=== PATIENT | female | born 1950 | race Caucasian/White ===

== ENCOUNTER 2017-11-26 10:21 | Inpatient (IN) | payer OTHER ==
[~2017-11-26] VITALS: Ht 165.1 cm; Wt 90.7 kg
--- NOTE | ~2017-11-26 | CON ---
[address] [address] CONSULTATION Name: STEPHANIECHANTELL Valentine Room: [address] IN M.R.#: [id number] Admission: 11/26/17 Attend Phys: Eder Schwarz Discharge: Date of : 54 Report #: [id number] THIS REPORT FOR: //name// CC: Rod Presley DATE OF SERVICE: 11/28/2017 REFERRING PHYSICIAN: Johnathan Presley DO CHIEF COMPLAINT: Back pain. HISTORY OF PRESENT ILLNESS: The patient is a 67-year-old female who is a lifelong nonsmoker. She presented to the hospital complaining of right lower back pain. The patient has a history of kidney stones. She has had a procedure to break up her stones back in October. At that time, she was having gross hematuria. Since then, she has done well. No obvious blood in her urine, only to present to the Emergency Room with continued discomfort and pain. According to the record, she was also complaining of shortness of breath. Today, the patient fails to demonstrate or complain of any short windedness, it is kind of surprising that we were actually called in to see her, although it was based on the fact that she did initially complain of shortness of air, which she may not have necessarily remembered because of her distress. In any event, she states that her pain now is better controlled. She is not having any shortness of breath, denies cough, phlegm production, fever, chills, nausea, vomiting. The patient is a lifelong nonsmoker at this time. She does carry a diagnosis of sleep apnea, was treated for that condition, but some time in the past she elected to discontinue using the noninvasive positive pressure device. She states that she was sleeping better. I had a discussion with her regarding sleep apnea and felt that it was imperative that she be retested to determine whether her sleep apnea has actually resolved or not. PAST MEDICAL HISTORY: Significant for kidney stones. She has a past medical history of pneumonia. She also carries a history of hypothyroidism, hypertension and hyperlipidemia. ALLERGIES: CODEINE, MORPHINE, SULFA DRUGS. FAMILY HISTORY: She denies any previous family elements, although the mother is present, states that on her father's side there is some coronary artery disease. REVIEW OF SYSTEMS: Systems review negative other [place] [address] CONSULTATION Name: CHANTELL BROWN Room: [address]#: [id number] Admission: 11/26/17 Attend Phys: Eder Schwarz Discharge: Date of : 54 Report #: [id number] MEDICATIONS: Promethazine, Zofran as needed, DuoNeb aerosol treatments, levothyroxine, OxyContin 5/325. PHYSICAL EXAMINATION: VITAL SIGNS: Reveal blood pressure 169/65, respiratory rate of 18, nonlabored, pulse rate 88, temperature 98.4. Her weight is 200 pounds. GENERAL APPEARANCE: Awake, alert, oriented, no distress. She is on room air, saturation above 90%. HEAD: Atraumatic. EYES: Pupils are round, equal, reactive. ORAL CAVITY: Good dentition. No lesions. Crowding of her oropharynx. NECK: No adenopathy, JVD or thyromegaly. CHEST: Clear throughout all lung avalos. No audible wheezes, rales or rhonchi. CARDIOVASCULAR: Regular rhythm. ABDOMEN: Obese. EXTREMITIES: Without edema or clubbing. NEUROLOGIC: She moves all 4 extremities. There are no pathologic reflexes. Strength equal bilaterally. IMAGING: Chest x-ray, some bibasilar atelectatic changes. No clearcut infiltrate, effusions, mass effect or pneumothorax. She does have blunting of the costophrenic angles. LABORATORY DATA: Sodium 141, potassium 4.2, chloride 106, CO2 of 28, BUN of 14, creatinine 0.8. Liver enzymes are normal. Urinalysis, trace of blood. Influenza A/B screen negative. Hemoglobin and hematocrit of 11.6 and 35 with a white count of 17,500. ASSESSMENT: 1. Ureterolithiasis, most likely. The patient states she was told there may be remnants of calculi in the ureter versus urethra. 2. Bibasilar atelectatic changes. 3. Obesity. 4. Obstructive sleep apnea by history. PLAN: 1. First and foremost the patient was advised to undergo an outpatient sleep study that can be ordered by her primary physician. 2. Pulmonary boswell, we will initiate incentive spirometry, advised her to take deeper breaths. 3. From a pulmonary standpoint, no further recommendations. We will sign off her case. We will be available if needed. By: [id number] Ashton MD /nt
[~2017-11-26 10:21] MED LIST: ALEVE220 MG PO; ASPIRIN325 PO; ATORVASTATIN CA40 MG PO; CENTRUM SILVER1 EAC4 PO; CINNAMON500 MG PO; CRANBERRY200 MG PO; LEVOTHYROXIN0.125 M1 PO; LEVOTHYROXINE 0.1 MG PO; MAGOX 400400 MG PO; OXYCODONE HCL 55 MG PO; PERCOCET PO; XARELTO10 MG PO
[2017-11-26 10:28] VITALS: BP 198/93
[2017-11-26 11:23] LABS: HEMATOCRIT 40.8 % (37.0-47.0); HEMOGLOBIN 13.6 gm/dL (12.0-15.0); MCH 29.1 pg (26.0-34.0); MCHC 33.3 g/dL (28.0-37.0); MCV 87.3 fL (80.0-100.0); MPV 7.9 fl. (7.2-11.1); NUCLEATED RBCS 0 /100WBC; PLATELET COUNT* 203 thou/uL (150-400); RBC 4.68 mil/uL (4.20-5.00); RDW-CV 14.1 % (10.5-14.5); WBC 15.5 thou/uL (4.0-11.0)
[2017-11-26 11:27] LABS: INFLUENZA A ANTIGEN None Detected (None Detect); INFLUENZA B ANTIGEN None Detected (None Detect)
[2017-11-26 11:28] LABS: ANION GAP 8 mmol/L (7-16); BUN 13 mg/dL (7-18); CHLORIDE 100 mmol/L (98-107); CO2 30 mmol/L (21-32); CREATININE 0.9 mg/dL (0.6-1.3); GLUCOSE 156 mg/dL (70-99); POTASSIUM 3.7 mmol/L (3.5-5.1); SODIUM 138 mmol/L (136-145)
[2017-11-26 11:29] LABS: APTT 25.4 Seconds (25.0-31.3)
[2017-11-26 11:39] LABS: ALBUMIN 3.9 g/dL (3.4-5.0); ALKALINE PHOSPHATASE 145 U/L (46-116); NT-PRO BRAIN NAT PEPTIDE 302 pg/mL (<300); SGOT 39 U/L (15-37); SGPT 52 U/L (30-65); TOTAL BILIRUBIN 0.8 mg/dL (<0.1-1.0); TOTAL PROTEIN 7.5 g/dL (6.4-8.2); TROPONIN-I LEVEL <0.06 ng/mL (<0.06)
[2017-11-26 11:40] LABS: ABSOLUTE LYMPHOCYTES 0.3 thou/uL (0.8-5.3); ABSOLUTE MONOCYTES 1.4 thou/uL (0.0-1.2); ABSOLUTE NEUTROPHILS 13.8 thou/uL (1.6-8.1); PLATELET ESTIMATE ADEQUATE
[2017-11-26 14:55] VITALS: BP 144/79
[2017-11-26 15:30] VITALS: BP 133/64
--- NOTE | 2017-11-26 16:41 | EKG ---
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1950 Requested By: Kenan Sim Order Number: [id number] MD: Preet Moran Measurements Intervals [place] Rate: 102 P: 55 MA: 126 QRS: 10 QRSD: 100 T: -10 QT: 320 QTc: 417 Interpretive Statements Sinus tachycardia Probable left atrial enlargement Borderline T wave abnormalities Compared to ECG 06/25/2015 10:37:36 T-wave abnormality now present Sinus rhythm no longer present Electronically Signed On 11-26-2017 16:41:06 CDT by Preet Moran [email or web address] <ELECTRONICALLY SIGNED> By: Preet Moran MD, FACC 11/26/17 1641 1059 1059 Preet Moran MD, [facility] /EPI
[2017-11-26 16:42] LABS: URINE BILIRUBIN NEGATIVE (Negative); URINE BLOOD TRACE (Negative); URINE CLARITY CLEAR; URINE COLOR YELLOW; URINE GLUCOSE-RANDOM NEGATIVE (Negative); URINE KETONES NEGATIVE (Negative); URINE LEUKOCYTES-REFLEX NEGATIVE (Negative); URINE NITRITE-REFLEX NEGATIVE (Negative); URINE PROTEIN NEGATIVE (Negative); URINE SPECIFIC GRAVITY 1.015 (1.005-1.030); URINE UROBILINOGEN 0.2 E.U./dl (0.2-1.0)
[2017-11-26 20:10] VITALS: BP 132/63
[2017-11-27 05:43] LABS: ABSOLUTE LYMPHOCYTES 0.9 thou/uL (0.8-5.3); ABSOLUTE MONOCYTES 1.1 thou/uL (0.0-1.2); BASOPHILS 0.1 %; HEMATOCRIT 35.7 % (37.0-47.0); LYMPHOCYTES 3.6 %; MCH 28.4 pg (26.0-34.0); MCHC 32.6 g/dL (28.0-37.0); MCV 87.2 fL (80.0-100.0); MONOCYTES 4.6 %; MPV 7.7 fl. (7.2-11.1); NUCLEATED RBCS 0 /100WBC; PLATELET COUNT* 192 thou/uL (150-400); POLYS 91.7 %; RBC 4.09 mil/uL (4.20-5.00); RDW-CV 14.2 % (10.5-14.5)
[2017-11-27 05:48] LABS: HEMOGLOBIN 11.6 gm/dL (12.0-15.0)
[2017-11-27 06:16] LABS: ALBUMIN 2.9 g/dL (3.4-5.0); CALCIUM 8.5 mg/dL (8.5-10.1); CREATININE 0.8 mg/dL (0.6-1.3); POTASSIUM 4.2 mmol/L (3.5-5.1); TOTAL BILIRUBIN 0.5 mg/dL (<0.1-1.0); TOTAL PROTEIN 5.7 g/dL (6.4-8.2)
[2017-11-27 09:00] VITALS: BP 133/60
[2017-11-27 15:25] VITALS: BP 118/62
[2017-11-27 21:15] VITALS: BP 132/63
[2017-11-28 00:35] VITALS: BP 169/79
[2017-11-28 04:34] VITALS: BP 159/71
[2017-11-28 04:36] LABS: ABSOLUTE LYMPHOCYTES 1.6 thou/uL (0.8-5.3); ABSOLUTE NEUTROPHILS 14.8 thou/uL (1.6-8.1); BASOPHILS 0.2 %; EOSINOPHILS 0.1 %; HEMATOCRIT 34.9 % (37.0-47.0); HEMOGLOBIN 11.6 gm/dL (12.0-15.0); LYMPHOCYTES 9.3 %; MCH 29.2 pg (26.0-34.0); MCHC 33.2 g/dL (28.0-37.0); MONOCYTES 5.9 %; NUCLEATED RBCS 0 /100WBC; PLATELET COUNT* 217 thou/uL (150-400); POLYS 84.5 %; RBC 3.96 mil/uL (4.20-5.00); RDW-CV 14.8 % (10.5-14.5); WBC 17.5 thou/uL (4.0-11.0)
[2017-11-28 08:00] VITALS: BP 169/65
[2017-11-28 17:38] VITALS: BP 155/74
[2017-11-28 21:00] VITALS: BP 150/73
[2017-11-29 00:37] VITALS: BP 144/77
[2017-11-29 04:14] LABS: ABSOLUTE EOSINOPHILS 0.2 thou/uL (0.0-0.7); ABSOLUTE LYMPHOCYTES 1.7 thou/uL (0.8-5.3); ABSOLUTE MONOCYTES 0.6 thou/uL (0.0-1.2); BASOPHILS 0.2 %; EOSINOPHILS 1.5 %; HEMATOCRIT 36.4 % (37.0-47.0); HEMOGLOBIN 12.1 gm/dL (12.0-15.0); LYMPHOCYTES 14.7 %; MCH 29.2 pg (26.0-34.0); MCHC 33.3 g/dL (28.0-37.0); MCV 87.7 fL (80.0-100.0); MONOCYTES 5.1 %; MPV 7.4 fl. (7.2-11.1); NUCLEATED RBCS 0 /100WBC; PLATELET COUNT* 221 thou/uL (150-400); POLYS 78.5 %; RBC 4.15 mil/uL (4.20-5.00); RDW-CV 14.8 % (10.5-14.5); WBC 11.5 thou/uL (4.0-11.0)
[2017-11-29 04:35] LABS: CALCIUM 8.1 mg/dL (8.5-10.1); CREATININE 0.7 mg/dL (0.6-1.3); POTASSIUM 4.1 mmol/L (3.5-5.1)
[2017-11-29 08:00] VITALS: BP 167/90
[2017-11-29 15:37] VITALS: BP 157/68
[2017-11-29 21:35] VITALS: BP 170/90
[2017-11-30 05:48] VITALS: BP 166/84
[2017-11-30 08:00] VITALS: BP 156/96
--- NOTE | 2017-11-30 08:14 | CON ---
[address] [address] CONSULTATION Name: CHANTELL BROWN Room: [address] IN M.R.#: [id number] Admission: 11/26/17 Attend Phys: Eder Schwarz Discharge: Date of : 54 Report #: [id number] THIS REPORT FOR: //name// CC: Rod Presley DATE OF SERVICE: 11/27/2017 INFECTIOUS DISEASE CONSULTATION ATTENDING PHYSICIAN: Dr. Johnathan Presley. REASON FOR CONSULTATION: Pneumonitis. HISTORY OF PRESENT ILLNESS: Chart reviewed, patient examined, a 67-year-old admitted through the emergency room with fevers with progressive shortness of breath as well as a cough productive of bloody sputum. She became mildly encephalopathic as well. Imaging suggested right basilar infiltrate. She was empirically started on therapy with levofloxacin. Overall, she feels somewhat better. Denies any particular risk factors. She has not previously been hospitalized with pneumonia. ALLERGIES: SULFA, MORPHINE, CODEINE AND SHE MENTIONED AMOXICILLIN WELL. BOTH ANTIBIOTICS CAUSE RASH. CURRENT MEDICATIONS: Include promethazine as needed, ipratropium and albuterol inhaler, levofloxacin, levothyroxine, atorvastatin, oxycodone. PAST MEDICAL HISTORY: As noted above, hyperlipidemia, hypothyroidism, previous thyroidectomy, cholecystectomy, total abdominal hysterectomy, right knee arthroscopic procedure. SOCIAL HISTORY: Nonsmoker, no ethanol. FAMILY HISTORY: Noncontributory. REVIEW OF SYSTEMS: As above. Denies any significant abdominal-related complaints, no nausea or diarrhea. She did have chills. PHYSICAL EXAMINATION: GENERAL: She is in moderate distress. She is fairly lucid at this point, appears to be not overtly undernourished. VITAL SIGNS: Temperature max 101.0, more recently 97, pulse 82, respirations 16, blood pressure 118/62. SKIN: Warm, dry, no rashes. HEENT: [place] [address] CONSULTATION Name: CHANTELL BROWN Room: [address]#: [id number] Admission: 11/26/17 Attend Phys: Eder Schwarz Discharge: Date of : 54 Report #: [id number] NECK: Supple. LUNGS: Few scattered coarse sounds, crackles at the right base. HEART: Regular. I do not appreciate murmur. ABDOMEN: Soft, slightly obese, nontender, no peritoneal signs. GENITOURINARY AND RECTAL: Deferred. LABORATORY DATA: Blood cultures sterile thus far. Sputum culture in progress had moderate white cells, mixed gen on Gram stain. Electrolytes: Sodium 141, potassium 4.2, chloride 106, bicarb is 28, BUN and creatinine 14 and 0.8 and anion gap of 7, glucose of 156. LFTs unremarkable. Albumin 2.9, total protein 5.7, estimated GFR of 72. CBC: White count of 24.0, H and H 11.6 and 35.7, platelets of 192. Urinary antigens for legionella not detected. Urinalysis unremarkable. Lactic acid 1.8. Influenza antigen was negative. Chest x-ray as described above. ASSESSMENT: Right basilar pneumonitis. We will continue empiric therapy. At this point, she is not critically ill. We will await results of the culture at this point. <ELECTRONICALLY SIGNED> By: Ruel Barajas MD 11/30/17 0814 1728 1930Jodolores Barajas MD /nt
--- NOTE | 2017-11-30 10:11 | CON ---
[address] [address] CONSULTATION Name: CHANTELL BROWN Room: [address] IN .R.#: [id number] Admission: 11/26/17 Attend Phys: Eder Schwarz Discharge: Date of : 54 Report #: [id number] THIS REPORT FOR: //name// CC: Rod Presley DATE OF SERVICE: 11/28/2017 REFERRING PHYSICIAN: Johnathan Presley DO. CHIEF COMPLAINT: Pneumonia. HISTORY OF PRESENT ILLNESS: The patient is a 67-year-old female who had been doing well up until morning when she woke up complaining of chills, fever, cough and actually had a bout of hemoptysis, which was not massive. She initially went to her primary physician's office who directed her to the hospital. She was admitted. She had been coughing, bringing up purulent secretions. She has had some chills initially on admission. During the time of her initial insult, she did not experience any nausea, vomiting, chest or abdominal pain. There was no dysuria or hematuria. Since being hospitalized, she is feeling somewhat better, not having any chills, still short of breath and still coughing on occasion with purulent secretions. No additional hemoptysis. PAST MEDICAL HISTORY: Significant for hypertension. She has a history of left breast carcinoma back in 2003, had a partial mastectomy, received radiation therapy and one treatment of oral chemotherapy. 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 This was about 20 years or so ago. She has had cholecystectomy. History of vaginal polyp removed, which is cancerous and the right knee arthroscopic procedure in the past. SOCIAL HISTORY: She is , lifelong nonsmoker. MEDICATIONS: Prior to admission included Levaquin, magnesium, Lipitor, cinnamon, cranberry extract, OxyContin p.r.n., aspirin. FAMILY HISTORY: Negative for any family ailments. ALLERGIES: CODEINE, MORPHINE, SULFA DRUGS. REVIEW OF SYSTEMS: System review negative other [place] [address] CONSULTATION Name: CHANTELL BROWN Room: [address]#: [id number] Admission: 11/26/17 Attend Phys: Eder Schwarz Discharge: Date of : 54 Report #: [id number] PHYSICAL EXAMINATION: VITAL SIGNS: Blood pressure 169/65, respiratory rate of 18, nonlabored, pulse rate 88, temperature 98.8 degrees. Her weight 200 pounds. GENERAL APPEARANCE: Awake, alert and oriented. She is not in any respiratory distress. She is lying in bed in the upright position. HEAD: Atraumatic. EYES: Pupils are round, equal, reactive. ORAL CAVITY: Moist. No lesions. NECK: No adenopathy. CHEST: Reveals crackles in the bases and mid lung field. There are no audible wheezes or rhonchi. CARDIOVASCULAR: Regular rhythm. ABDOMEN: Obese without organomegaly. EXTREMITIES: No evidence of edema or clubbing. NEUROLOGIC: She moves all 4 extremities. Strength equal bilaterally. SKIN: Warm, dry, no rash. LABORATORY DATA: Sodium 141, potassium 4.2, chloride 106, CO2 of 28, BUN of 14, creatinine 0.8. Lactic acid on admission 1.8. ProBNP 302, which is slightly above normal. Troponin less than 0.06. Hemoglobin and hematocrit of 11.6 and 35 with a white count of 17,500. Influenza A/B screen is negative. Chest x-ray today shows blunting of the costophrenic angles bilaterally, bibasilar nonconsolidative infiltrates. IMPRESSION: 1. Pneumonia. 2. Obesity. 3. History of above cancers. 4. History of hypertension. PLAN: We will add Zithromax to her current regimen. Blood cultures have already been obtained. There has been no growth on her cultures to date so far. We will follow up with a repeat chest x-ray, initiate incentive spirometry and also have her undergo a flutter valve treatment. Continue with aerosols as well. Her O2 saturation is well above 95%. No need for supplemental oxygen, although we will have her use it at bedtime. <ELECTRONICALLY SIGNED> By: Gentry Ashton MD 11/30/17 1011 1102 [id number] Ashton MD /nt
[2017-11-30 12:11] VITALS: BP 166/84
[2017-11-30] MEDS ORDERED: LEVAQUIN 750 M750 MG PO (12:18)
[2017-11-30] MEDS ORDERED: MUCINEX DM ER1 EAC1 PO (12:19)
[2017-11-30] MEDS ORDERED: MEDROLDOSEPACK PO (12:23)
[2017-11-30] MEDS ORDERED: ACYCLOVIR 400400 MG PO (12:24)
[2017-11-30] MEDS ORDERED: ACETAMINOPHEN325 M1 PO (12:35)
[2017-11-30 15:48] VITALS: BP 166/84
== END 2017-11-30 14:45 | disposition home or self-care (01) | DRG 177 ==
LOC: M.ERS 10:21 → M.ORTHSURG 11:45 → M.TBA-ER 11:45 → M.ORTHSURG 15:12
PROVIDERS: Family Medicine; ADMIT Internal Medicine
DX: J15.6 Pneumonia due to other Gram-negative bacteria (principal); G93.40 Encephalopathy, unspecified; E44.0 Moderate protein-calorie malnutrition; E78.5 Hyperlipidemia, unspecified; I10 Essential (primary) hypertension; E66.9 Obesity, unspecified; B00.9 Herpesviral infection, unspecified; Z90.710 Acquired absence of both cervix and uterus; E89.0 Postprocedural hypothyroidism; Z53.29 Procedure and treatment not carried out because of patient's decision for other reasons; Z60.2 Problems related to living alone; Z90.49 Acquired absence of other specified parts of digestive tract; Z85.828 Personal history of other malignant neoplasm of skin; Z79.899 Other long term (current) drug therapy; Z79.82 Long term (current) use of aspirin; Z88.6 Allergy status to analgesic agent; Z88.8 Allergy status to other drugs, medicaments and biological substances; Z88.2 Allergy status to sulfonamides; Z88.1 Allergy status to other antibiotic agents; Z90.12 Acquired absence of left breast and nipple; Z85.3 Personal history of malignant neoplasm of breast; Z68.33 Body mass index [BMI] 33.0-33.9, adult; Z82.49 Family history of ischemic heart disease and other diseases of the circulatory system

== ENCOUNTER → 2019-02-21 | Outpatient (CLI) | payer OTHER ==
[~2019-02-21] MED LIST changes: +ACETAMINOPHEN325 M1 PO; +ACYCLOVIR 400400 MG PO; +LEVAQUIN 750 M750 MG PO; +MEDROLDOSEPACK PO; +MUCINEX DM ER1 EAC1 PO
== END ==
LOC: M.RAD 13:10
DX: Z12.31 Encounter for screening mammogram for malignant neoplasm of breast (principal)

== ENCOUNTER → 2020-03-05 | Outpatient (CLI) | payer MEDICARE | LOC: M.RAD 13:00 | PROVIDERS: ATTEND Nurse Practitioner Family | DX: Z12.31 Encounter for screening mammogram for malignant neoplasm of breast (principal) ==

== ENCOUNTER → 2021-06-18 | Outpatient (CLI) | payer OTHER | LOC: M.RAD 10:25 | PROVIDERS: ATTEND Nurse Practitioner Family | DX: R05.9 Cough, unspecified (principal) ==

== ENCOUNTER → 2021-10-07 | Outpatient (CLI) | payer OTHER | LOC: M.RAD 09:54 | PROVIDERS: ATTEND Family Medicine | DX: R07.9 Chest pain, unspecified (principal) ==